=== PATIENT | male | born 1970 | race Caucasian/White ===

== ENCOUNTER → 2020-12-26 | Outpatient (CLI) | payer MEDICARE, OTHER ==
[~2020-12-26] MED LIST: AMLODIPINE BESY10 MG PO; ATORVASTATIN CA40 MG PO; CEFEPIME HCL1 GM IV; CLARITIN 10MG T10 MG PO; CYMBALTA60 MG PO; DOK100 MG PO; DULOXETINE HCL60 MG PO; ESOMEPRAZOLE MA40 MG PO; FISH OIL 1,0001 EACH PO; FLONASE 0.05% N16 GM; GABAPENTIN300 MG PO; GABAPENTIN800 MG PO; HYDROCHLOROTH12.5 M1 PO; HYDROCODON-ACE1 EAC2 PO; IBUPROFEN800 MG PO; LISINOPRIL10 MG PO; LISINOPRIL20 MG PO; LISINOPRIL30 MG PO; LOPRESSOR 25 MG25 MG PO; LORATADINE10 MG PO; LORTAB 7.5-3251 EACH PO; NEXIUM40 MG PO; NORVASC10 MG PO; PRINIVIL10 MG PO; TIZANIDINE HCL4 MG PO; VANCOMYCIN1 GM/2002 IV; VITAMIN B-121000 MCG PO
== END ==
LOC: US 13:37
DX: I73.89 Other specified peripheral vascular diseases (principal)
CPT/HCPCS: 93925

== ENCOUNTER 2021-04-16 23:53 | Inpatient (IN) | payer MEDICARE, OTHER ==
[~2021-04-16] VITALS: Ht 185.4 cm; Wt 142.9 kg
[~2021-04-16 23:53] MED LIST changes: -AMLODIPINE BESY10 MG PO; -CEFEPIME HCL1 GM IV; -CLARITIN 10MG T10 MG PO; -DOK100 MG PO; -DULOXETINE HCL60 MG PO; -ESOMEPRAZOLE MA40 MG PO; -FLONASE 0.05% N16 GM; -GABAPENTIN800 MG PO; -HYDROCHLOROTH12.5 M1 PO; -HYDROCODON-ACE1 EAC2 PO; -LISINOPRIL10 MG PO; -LISINOPRIL30 MG PO; -LOPRESSOR 25 MG25 MG PO; -NEXIUM40 MG PO; -VANCOMYCIN1 GM/2002 IV
[2021-04-17] MEDS ORDERED: LOPRESSOR 25 MG25 MG PO (04:01)
[2021-04-17] MEDS ORDERED: DULOXETINE HCL60 MG PO (04:02)
[2021-04-17] MEDS ORDERED: ESOMEPRAZOLE MA40 MG PO (04:03)
[2021-04-17] MEDS ORDERED: DOK100 MG PO (04:03)
[2021-04-17] MEDS ORDERED: AMLODIPINE BESY10 MG PO (04:03)
[2021-04-17] MEDS ORDERED: HYDROCODON-ACE1 EAC2 PO (04:03)
[2021-04-17] MEDS ORDERED: HYDROCHLOROTH12.5 M1 PO (04:04)
[2021-04-17] MEDS ORDERED: LISINOPRIL30 MG PO (04:04)
[2021-04-17] MEDS ORDERED: CLARITIN 10MG T10 MG PO (04:04)
[2021-04-17] MEDS ORDERED: FLONASE 0.05% N16 GM (04:05)
[2021-04-17] MEDS ORDERED: GABAPENTIN800 MG PO ×2 (04:05→15:03)
[2021-04-17 06:04] LABS: HEMOGLOBIN 13.7 gm/dl (14.0-17.5); RED BLOOD COUNT 4.26 M/UL (4.20-5.50)
[2021-04-17 06:21] LABS: BUN/CREATININE RATIO 12 (0-10)
[2021-04-17] MEDS ORDERED: NEXIUM40 MG PO (07:43)
[2021-04-18 04:17] LABS: HEMOGLOBIN 15.1 gm/dl (14.0-17.5); WHITE BLOOD COUNT 9.3 K/UL (4.5-11.0)
[2021-04-18 04:29] LABS: RED BLOOD COUNT 4.69 M/UL (4.20-5.50)
[2021-04-18 04:42] LABS: BUN/CREATININE RATIO 12 (0-10)
[2021-04-18] MEDS ORDERED: CEFEPIME HCL1 GM IV (15:14)
[2021-04-18] MEDS ORDERED: LISINOPRIL10 MG PO (15:14)
[2021-04-18] MEDS ORDERED: VANCOMYCIN1 GM/2002 IV (15:14)
== END 2021-04-18 17:47 | disposition home health service (06) | DRG 863 ==
LOC: M/S 23:53
PROVIDERS: Internal Medicine; ADMIT Internal Medicine Infectious Disease
PROC: 02HV33Z Insertion of Infusion Device into Superior Vena Cava, Percutaneous Approach (ICD-10-PCS; principal; 2021-04-18)
PROC: B548ZZA Ultrasonography of Superior Vena Cava, Guidance (ICD-10-PCS; 2021-04-18)
DX: T81.41XA Infection following a procedure, superficial incisional surgical site, initial encounter (principal); M86.8X7 Other osteomyelitis, ankle and foot; L03.115 Cellulitis of right lower limb; I12.9 Hypertensive chronic kidney disease with stage 1 through stage 4 chronic kidney disease, or unspecified chronic kidney disease; N18.30 Chronic kidney disease, stage 3 unspecified; K21.9 Gastro-esophageal reflux disease without esophagitis; F41.9 Anxiety disorder, unspecified; Z88.6 Allergy status to analgesic agent; Z91.19 Patient's noncompliance with other medical treatment and regimen; Z79.899 Other long term (current) drug therapy
CPT/HCPCS: 36415; 73718; 80048; 80053; 80202; 85025; 85652; 86140; C1751; J0692; J1650; J3370; J7070; U0002

== ENCOUNTER → 2021-05-15 | Outpatient (CLI) | payer MEDICARE, OTHER ==
[~2021-05-15] MED LIST changes: +AMLODIPINE BESY10 MG PO; +CEFEPIME HCL1 GM IV; +CLARITIN 10MG T10 MG PO; +DOK100 MG PO; +DULOXETINE HCL60 MG PO; +ESOMEPRAZOLE MA40 MG PO; +FLONASE 0.05% N16 GM; +GABAPENTIN800 MG PO; +HYDROCHLOROTH12.5 M1 PO; +HYDROCODON-ACE1 EAC2 PO; +LISINOPRIL10 MG PO; +LISINOPRIL30 MG PO; +LOPRESSOR 25 MG25 MG PO; +NEXIUM40 MG PO; +VANCOMYCIN1 GM/2002 IV
== END ==
LOC: OPSV 12:57
DX: M86.8X7 Other osteomyelitis, ankle and foot (principal); I12.9 Hypertensive chronic kidney disease with stage 1 through stage 4 chronic kidney disease, or unspecified chronic kidney disease; N18.30 Chronic kidney disease, stage 3 unspecified
CPT/HCPCS: G0463